=== PATIENT | female | born 1985 | race African-American/Black ===

== ENCOUNTER 2020-04-28 12:49 | Emergency (ER) | payer MEDICAID ==
[~2020-04-28] VITALS: Ht 167.6 cm; Wt 74.0 kg
[2020-04-28 13:18] VITALS: BP 132/80
[2020-04-28] MEDS ORDERED: SODIUM CHLORIDE 0.9% 1,000 ML IV ONE (13:30)
== END 2020-04-28 15:23 | disposition left against medical advice (07) ==
LOC: ER 13:11
DX: R46.2 Strange and inexplicable behavior (principal)
CPT/HCPCS: 96360; 99283; J7030